=== PATIENT | female | born 1955 | race Caucasian/White ===

== ENCOUNTER 2018-03-29 16:51 | Outpatient (REF) | payer BC, SELFPAY | END 2018-03-29 17:11 | LOC: LBN 16:51 | PROVIDERS: PCP Student in an Organized Health Care Education/Training Program; Visit Provider Nurse Practitioner Adult Health | DX: J02.9 Acute pharyngitis, unspecified (principal) | CPT/HCPCS: 87070 ==

== ENCOUNTER 2018-08-10 01:30 | Outpatient (CLI) | payer BC, SELFPAY ==
--- NOTE | 2018-08-10 14:25 | DI.MAMMO_ITS ---
SYMPTOM/DIAGNOSIS: SCREENING, Z12.31 MAMMOGRAMS: Mammograms were interpreted according to the usual protocol including computer analysis with CAD system, tomosynthesis and C view imaging. Comparison is made with prior examinations. Breast density, Category B. No suspicious masses or microcalcifications are seen. There has been no significant change compared to the prior examination. The skin and axilla are unremarkable. IMPRESSION: No evidence for malignancy. Yearly mammography is recommended. Category 1. MQSA ASSESSMENT OF FINDINGS: Negative. Category 1. Patient will receive a letter notifying them of these results. BI-RADS category B. There are scattered areas of fibroglandular density.
== END 2018-08-10 01:50 ==
PROVIDERS: PCP Student in an Organized Health Care Education/Training Program; Visit Provider Student in an Organized Health Care Education/Training Program
DX: Z12.31 Encounter for screening mammogram for malignant neoplasm of breast (principal)
CPT/HCPCS: 77063; 77067

== ENCOUNTER 2019-05-03 16:25 | Outpatient (REF) | payer BC, SELFPAY | END 2019-05-03 16:45 | LOC: LBO 16:25 | PROVIDERS: PCP Student in an Organized Health Care Education/Training Program; Visit Provider Nurse Practitioner | DX: R30.0 Dysuria (principal) | CPT/HCPCS: 87086 ==

== ENCOUNTER 2019-06-02 10:18 | Outpatient (CLI) | payer MEDICARE, BC, SELFPAY ==
[2019-06-02 11:08] LABS: HCT 42.3 % (36.0-46.0); HGB 13.9 g/dL (12.0-15.5); Mean Corp. HGB Concentration 32.9 g/dL (32.0-36.0); Mean Corpuscular Hemoglobin 29.1 pg (27.0-33.0); Mean Corpuscular Volume 88.7 fL (80-95); Mean Platelet Volume 10.7 fL (8.0-11.0); Platelet Count 291 x1000/uL (130-400); RBC 4.77 m/cumm (4.00-5.20); RBC Distribution Width 14.4 % (11.7-14.6)
[2019-06-02 11:48] LABS: ALT 29 U/L (14-59); AST 15 U/L (15-37); Albumin 3.7 g/dL (3.4-5.0); Alkaline Phosphatase 86 U/L (46-116); Anion Gap 10.5 mmol/L (3-11); BUN 14 mg/dL (7-18); Bilirubin, Total 0.4 mg/dL (0.2-1.0); CO2 26.5 mmol/L (21.0-32.0); CREATININE 0.69 mg/dL (0.55-1.02); Calcium 8.8 mg/dL (8.5-10.1); Calculated LDL 188 mg/dL; Chloride 106 mmol/L (98-107); Cholesterol 262 mg/dL (<200); Glucose 94 mg/dL (74-106); HDL Cholesterol 50 mg/dL (40-60); Potassium 4.7 mmol/L (3.5-5.1); Sodium 143 mmol/L (136-145); Total Protein 7.1 g/dL (6.4-8.2); Triglyceride 124 mg/dL (<150)
== END 2019-06-02 10:38 ==
PROVIDERS: PCP Student in an Organized Health Care Education/Training Program; Visit Provider Student in an Organized Health Care Education/Training Program
DX: F90.0 Attention-deficit hyperactivity disorder, predominantly inattentive type (principal); F41.9 Anxiety disorder, unspecified; E66.3 Overweight; R30.0 Dysuria
CPT/HCPCS: 36415; 80053; 80061; 85027

== ENCOUNTER 2020-09-19 04:30 | Outpatient (CLI) | payer MEDICARE, BC, SELFPAY ==
[2020-09-19 09:32] LABS: HCT 40.1 % (36.0-46.0); HGB 13.5 g/dL (11.2-15.7); MCH 29.3 pg (27.0-33.0); MCHC 33.7 % (32.0-36.0); MCV 87.2 fL (80-95); MPV 11.6 fL (8.0-11.0); Platelet Count 262 10^3/uL (130-400); RDW 14.7 % (11.7-14.6)
[2020-09-19 10:28] LABS: ALT 34 U/L (14-59); AST 19 U/L (15-37); Alkaline Phosphatase 87 U/L (46-116); Anion Gap 9.5 mmol/L (3-11); BUN 18 mg/dL (7-18); Bilirubin, Total 0.5 mg/dL (0.2-1.0); CO2 25.5 mmol/L (21.0-32.0); CREATININE 0.8 mg/dL (0.55-1.02); Calcium 9.5 mg/dL (8.5-10.1); Calculated LDL 156 mg/dL (<100); Chloride 107 mmol/L (98-107); Cholesterol 237 mg/dL (<200); Glucose 100 mg/dL (74-106); HDL Cholesterol 69 mg/dL (40-60); Potassium 4.3 mmol/L (3.5-5.1); Sodium 142 mmol/L (136-145); TSH (W/Ref FT4) 1.34 uIU/mL (0.36-3.74); Triglyceride 62 mg/dL (<150)
[2020-09-19 10:40] LABS: Vitamin D 25 Total 25.9 ng/ml (30-100)
== END 2020-09-19 04:31 | disposition home or self-care (01) ==
LOC: LBO 04:30
PROVIDERS: PCP Student in an Organized Health Care Education/Training Program; Visit Provider Student in an Organized Health Care Education/Training Program
DX: E55.9 Vitamin D deficiency, unspecified (principal); E46 Unspecified protein-calorie malnutrition; E66.3 Overweight; K58.9 Irritable bowel syndrome, unspecified; R31.9 Hematuria, unspecified
CPT/HCPCS: 36415; 80053; 80061; 82306; 85027; 84443

== ENCOUNTER 2020-09-19 12:04 | Emergency (ER) | payer MEDICARE, BC, SELFPAY ==
[2020-09-19] VITALS (75 sets, daily range): BP systolic 116–164; BP diastolic 70–102; PULSE 55–90; RESP 8–24; TEMP 36.6–36.7; O2SAT 94–99
--- NOTE | 2020-09-19 12:00 | DI.RAD_ITS ---
EXAM: XR CHEST 2V PA LATERAL CLINICAL HISTORY: CP. TECHNIQUE: 2D digital imaging was performed. COMPARISON: CR CHEST 2 VIEWS PA,LAT from 01/05/2013 CR CHEST 2 VIEWS PA,LAT from 12/11/2017 FINDINGS: Heart size is normal. The mediastinum is not widened. Right lung is clear. Mild increased markings are noted adjacent left heart border in lingular segmen t of the left lung. No pleural effusions. No pulmonary edema. Pneumothorax. IMPRESSION: Mild increased markings in the lingular segment left lung adjacent to the left heart border. No pleu ral effusions. No pneumothorax. DATA REPOSITORY: RADIATION DOSE DELIVERED:
--- NOTE | 2020-09-19 12:00 | RT.EKG_ITS ---
APPROVED REPORT Exam: Resting ECG Patient Location: E HR:66 bpm ECG Measurements Heart Rate 66 AXIS OH 150 P 65 QRSd 94 QRS 48 QT 384 T 59 QTc 403 Conclusion Sinus rhythm...normal P axis, V-rate 60- 99
--- NOTE | 2020-09-19 12:08 | ED.GENADUL_ITS ---
Discharge Plan Disposition Patient Disposition: HOME Condition: Good Discharge Details Clinical Impression: Back pain, Chest pain Primary Care Provider: Zenaida Price ED Provider: Cecilia Cobian Home Meds and New Rx's Prescriptions: Continued albuterol sulfate [ProAir HFA] 90 mcg/actuation HFA aerosol inhaler 2 puff Inhalation Q4H PRN (Reason: bronchospasm) Qty: 1 RF: 3 loratadine [Allergy Relief (loratadine)] 10 mg tablet 10 mg PO DAILY RF: 0 bupropion HCl 150 mg tablet extended release 24 hr 150 mg PO QAM Qty: 60 RF: 0 naproxen sodium 550 mg tablet 550 mg PO BID PRN (Reason: pain) Qty: 40 RF: 0 Sinus Rinse Starter 1 EACH packet 1 ea NS BID PRNRF: 0 epinephrine 0.3 mg/0.3 mL auto-injector 0.3 mg IM ONCE PRNRF: 0 No Action mirtazapine [Remeron] 15 mg tablet 15 mg PO QHS RF: 0 gabapentin 100 mg capsule 100 mg PO TID PRN (Reason: pain) Qty: 42 RF: 0 lorazepam [Ativan] 1 mg tablet 1 mg PO DAILY PRN (Reason: anxiety) Qty: 10 RF: 0 diclofenac sodium [Voltaren] 100 GM gel 2 g Topical QID PRNRF: 0 Discharge Instructions Instructions: Chest Pain (ED), Back Pain (ED) Additional Instructions: Your imaging and labs are reassuring here today. May continue with Tylenol and/or ibuprofen. Discomfort. Please encourage water intake. Please encourage gentle stretching. You may continue with topical options as well such as lidocaine patches. If you develop fever/chills, shortness of breath, difficulty breathing, increased pain or other new/worsening symptoms please seek care urgently once again. Otherwise, please follow-up with your primary care in 1 week for reevaluation. Referrals: Zenaida Price DO [Primary Care Provider] - Discharge Data Discharge Date/Time-TO BE ENTERED AT DEPARTURE: 09/19/20 19:21 Medical Decision Making <SOLIS Valencia - Last Filed: 09/19/20 22:18> Patient has a pleasant 65-year-old [id number] female presenting today with chief complaint of left-sided back pain that is now radiating into the left side of her chest. She reports the pain began today's the last night while watching TV. States that the pain has been persistent). She denies any vomiting, lightheadedness. Pain radiates down the left arm. No personal or history of any familial cardiac disease. States the pain did come on after eating tacos and does state that the pain is similar to acid reflux but she states she has not had this for several years. She denies any shortness of breath or change in breathing. Pain is not exertional. No change with position or movement of the left upper extremity. She denies any history of trauma. On exam, patient appears nontoxic. She does appear anxious. Her vital signs are stable. She 2+ distal pulses in all extremities. Her lungs are clear. Normal cardiac exam. Not appreciate any rash. No pain elicited with palpation or movement of the left upper extremity. Abdominal exam is benign with no epigastric quadrant discomfort. No lower extremity edema, calves are soft and nontender. EKG was obtained and reviewed by Dr. Tapia. Patient had a normal sinus rhythm with a rate of 66. No acute ischemic changes are noted. Differential diagnoses include ACS, dissection, musculoskeletal pain, GERD, pancreatitis versus other. Patient is not having exertional pain that would be expected with ACS. She does not have any shortness of breath, pleuritic pain. Patient is not tachycardic or hypoxic, I do not have evidence at this time to suggest pulmonary embolism. Patient does have previous allergy to CT contrast dye. She reports that the last time she had it for several years ago and that she experienced diffuse hives. Patient states that she did have anaphylactic reaction to MRI contrast. She states that the last night she had a reaction with here, did not find evidence of this, likely prior to EMR. Patient and I discussed my concerns regarding dissection and the need to complete a CT with contrast. Discussed pretreatment with steroids and Benadryl. She was understanding and would like to proceed. Labs reviewed. No leukocytosis. Stable H&H. Normal coags. CMP without significant abnormality. Initial troponin less than 0.05. Lipase within normal limits. Patient received 125 mg of Solu-Medrol. Per policy, will wait 4 hours prior to patient undergoing CT with contrast. We will also get 50 mg of Benadryl 1 hour prior to imaging. Patient was evaluated by Dr. Tapia. I discussed further pain management with Mylanta rebound effect of alleviating discomfort. He recommended small dose of Dilaudid Patient tolerated pretreatment well. She came back from CT with no symptoms currently. FINDINGS: Pulmonary arteries: Normal. No pulmonary emboli. Aorta: Unremarkable. No aortic aneurysm. No aortic dissection. Lungs: Unremarkable. No consolidation. No masses. Pleural spaces: Unremarkable. No pneumothorax. No pleural effusion. Heart: Unremarkable. No cardiomegaly. No pericardial effusion. Lymph nodes: Unremarkable. No enlarged lymph nodes. Bones/joints: Unremarkable. No acute fracture. Soft tissues: Unremarkable. IMPRESSION: No evidence of aortic dissection or other acute findings FINDINGS: Aorta: No aortic aneurysm. No aortic dissection. Celiac trunk and mesenteric arteries: No occlusion or significant stenosis. Renal arteries: No occlusion or significant stenosis. Liver: Normal. No mass. Gallbladder and bile ducts: The gallbladder is surgically absent. Pancreas: Normal. No ductal dilation. Spleen: Normal. No splenomegaly. Adrenals: Normal. No mass. Kidneys and ureters: There is a 1.5 cm simple cyst of the left kidney. Stomach and bowel: Diverticulosis of the colon is present. Lymph nodes: Unremarkable. No enlarged lymph nodes. Intraperitoneal space: Unremarkable. No free air. No significant fluid collection. Bones/joints: Unremarkable. No acute fracture. No dislocation. Soft tissues: Unremarkable. IMPRESSION: 1. Status post cholecystectomy. 2. Small simple cyst of the left kidney. 3. Diverticulosis. 4. Unremarkable CT angiogram of the abdomen and pelvis. Discussed the findings with the patient. Patient was aware of the cyst. She continues to feel well after her CT scan. We will give Toradol to help with discomfort. Advised likely musculoskeletal source of her discomfort. Patient is receiving IV hydration. Please for continued care for discomfort. Return precautions were discussed. Advise follow-up with primary care in the next 1 week for reevaluation. All of her questions and concerns were addressed and she is in agreement this plan <Nathan Tapia MD - Last Filed: 10/05/20 17:21> Patient seen, examined, and discussed with SOLIS Cobian. I agree with treatment plan as discussed/documented. HPI <SOLIS Valencia - Last Filed: 09/19/20 22:18> General Mode of arrival: ambulatory . Date/Time Provider Initiated Documentation: 09/19/20 12:07 . Limitations to Documentation: no limitations . Information obtained by: patient, RN notes reviewed and old records reviewed . History of Present Illness 65 year old F presents to the emergency department with the chief complaint of Left upper back pain, described as moderate, with intensity rated at 3. Quality is described as stabbing, and is localized to the back. Patient reports radiation to (Anteriorly into left chest). Patient started experiencing this day(s) (Began last night after dinner while sedentary) and it has been constant. No relieving factors improve symptom(s), No exacerbating factors reported . Patient notes nausea/vomiting (Reports mild nausea like acid reflux); denies cough, diaphoresis, fever/chills, loss of appetite, rash, shortness of breath and weakness. Patient did receive the following treatments prior to arrival, other (Lidocaine patch) Related Data Home Medications Medication Instructions Recorded Confirmed Sinus Rinse Starter 1 ea NS BID PRN packet 05/18/14 09/28/20 naproxen sodium 550 mg tablet 550 mg PO BID PRN #40 tab-cap 07/16/18 09/28/20 albuterol sulfate 90 mcg/actuation 2 puff INHALATION Q4H PRN #1 inh 10/18/18 09/28/20 aerosol inhaler epinephrine 0.3 mg/0.3 mL 0.3 mg IM ONCE PRN 04/24/20 09/28/20 injection, auto-injector bupropion HCl 150 mg 24 hr tablet, 150 mg PO QAM #60 tab 09/13/20 09/28/20 extended release loratadine 10 mg tablet 10 mg PO DAILY 09/13/20 09/28/20 diclofenac sodium [Voltaren] 2 g TOPICAL QID PRN 09/21/20 09/28/20 gabapentin 100 mg capsule 100 mg PO TID PRN #42 cap 09/28/20 09/28/20 lorazepam 1 mg tablet 1 mg PO DAILY PRN #10 tab 09/28/20 mirtazapine 15 mg tablet 15 mg PO QHS tab 09/28/20 09/28/20 Previous Rx's Medication Instructions Recorded naproxen sodium 550 mg tablet 550 mg PO BID PRN #40 tab-cap 07/16/18 albuterol sulfate 90 mcg/actuation 2 puff INHALATION Q4H PRN #1 inh 10/18/18 aerosol inhaler bupropion HCl 150 mg 24 hr tablet, 150 mg PO QAM #60 tab 09/13/20 extended release gabapentin 100 mg capsule 100 mg PO TID PRN #42 cap 09/28/20 lorazepam 1 mg tablet 1 mg PO DAILY PRN #10 tab 09/28/20 Allergies Allergy/AdvReac Type Severity Reaction Status Date / Time Iodinated Contrast Media Allergy Severe anaphylaxis Verified 09/28/20 09:18 [Iodinated Contrast- Oral and IV Dye] acetaminophen Allergy Intermediate Hives Verified 09/28/20 09:18 erythromycin base Allergy Intermediate rash, pt Verified 09/28/20 09:18 [Erythromycin Base] confirms tolerated Azithromycin fentanyl Allergy Intermediate PO N&V Verified 09/28/20 09:18 Metronidazole HCl Allergy Intermediate hives Verified 09/28/20 09:18 [From Flagyl] propoxyphene Allergy Intermediate Verified 09/28/20 09:18 Sulfa (Sulfonamide Allergy Intermediate rash Verified 09/28/20 09:18 Antibiotics) Tetracyclines Allergy Intermediate Hives Verified 09/28/20 09:18 Penicillins Allergy Unknown erythematous Verified 09/28/20 09:18 rash midazolam AdvReac Severe PO N&V Verified 09/28/20 09:18 quetiapine fumarate AdvReac Severe 06/2012 Verified 09/28/20 09:18 [From Seroquel] drunk off topiramate AdvReac Intermediate Nausea Verified 09/28/20 09:18 codeine AdvReac Mild Nausea Verified 09/28/20 09:18 oxycodone HCl [From Percocet] AdvReac Unknown Nausea Verified 09/28/20 09:18 CT DYE Allergy Severe hives Uncoded 09/28/20 09:18 MRI dye Allergy Severe Swelling/Ed Uncoded 09/28/20 09:18 charles environmental Allergy Uncoded 09/28/20 09:18 Review of Systems <SOLIS Valencia - Last Filed: 09/19/20 22:18> Constitutional Constitutional: Reports as per HPI, Denies chills, Denies fever(s), Denies headache(s), Denies lethargy and Denies poor appetite Eyes Eyes: Denies change in vision ENT Ears, Nose, Mouth, and Throat: Denies dizziness and Denies headache(s) Cardiovascular Cardiovascular: Reports as per HPI, Denies dyspnea and Denies dyspnea on exertion Respiratory Respiratory: Reports as per HPI, Denies chest congestion, Denies cough, Denies pain on inspiration, Denies pain with cough, Denies dyspnea, Denies dyspnea on exertion and Denies wheezing Gastrointestinal Gastrointestinal: Reports as per HPI, Denies abdominal pain, Denies diarrhea, Denies nausea and Denies vomiting Musculoskeletal Musculoskeletal: Reports as per HPI and Denies back pain Integumentary/Breasts Skin/Breast: Reports as per HPI and Denies rash Neurologic Neurologic: Reports as per HPI, Denies dizziness and Denies headache(s) Allergic/Immunologic Allergic/Immunologic: Denies wheezing PFSH <SOLIS Valencia - Last Filed: 09/19/20 22:18> Medical History Anxiety At high risk for caregiver role strain Caring for Mo with dementia (M-F). Cared for/lost [id number] this past year. Complicated bereavement Lost daughter in law (pancreatic ca), 2018-.. after being a primary caregiver, then supported son. Now caring for mo with dementia. Hearing loss Hematuria, unspecified Irritable colon Obesity Surgical History section 1978 Cholecystectomy 1999 Colonoscopy - [facility] [place] (08/25/16) Cyst, Bartholin Right, excised Extraction of cataract (10/10/13) [place] with [place]Susan Lorenz [facility] then R in 10/2013 Left renal cyst, 12/26/2011 Dr Bor[place], [facility] Oophrectomy, Left 1975 renal ultrasound (09/01/17) [facility]/BSO, 1999 secondary to excessive bleeding Tonsillectomy 18yo Family History Mother Hypertensive disorder, systemic arterial Father Personal history of malignant neoplasm Renal cancer & Bladder cancer Brother , Cardiomyopathy at age 59. Personal history of malignant neoplasm Bladder cancer Maternal Grandfather , Bladder ca & emphyse No problems noted. Maternal Grandmother No problems noted. Paternal Grandfather , NE at age 62. No problems noted. Paternal Grandmother , Metastatic kid cance No problems noted. Brother Asthma Asthma & allergies Brother No problems noted. Social History Smoking/Tobacco Use Status: Former Tobacco Use Quit Date: 06/29/18 Smoking risk assessment performed?: Yes Alcohol Intake: never Drug use: Never number of grandchildren: 0 current occupation: Retired from [employer] What type of physical activity do you participate in: none Seatbelt use: always Do you feel safe at home: Yes Do you feel safe in your relationship?: Yes Exam <SOLIS Valencia - Last Filed: 09/19/20 22:18> Const General: cooperative, healthy appearing, comfortable, no acute distress and well developed Nutritional Appearance: well nourished and overweight Orientation: alert, awake and oriented x3 HENMT Head: normal to inspection Ears: hearing grossly normal bilaterally Mouth: moist mucous membranes Chest Chest: normal inspection of the chest, normal palpation of entire chest wall and no crepitus Resp Effort & Inspection: normal respiratory effort, able to speak in complete sentences and no respiratory distress Auscultation: clear to auscultation bilaterally, no rales, no rhonchi and no wheezes Cardio Rate: regular rate Rhythm: regular rhythm Heart Sounds: S1 normal and S2 normal GI Inspection: normal to inspection, no edema and non-distended Palpation: soft, no hepatosplenomegaly, not firm, no guarding, not rigid and nontender Auscultation: normal bowel sounds Back/Spine/Pelvis Back: no CVA tenderness Cervical Spine: normal cervical lordosis, cervical ROM normal, No cervical spinal tenderness and No step off deformity Thoracic/Lumbar Spine: thoracic and lumbar spine normal to inspection, No paraspinal tenderness, No thoracic spinal tenderness, No lumbar spinal tenderness and other (Tenderness to palpation along the medial aspect of the right scapula) Skin General skin exam: no rashes or lesions noted Trauma: no lacerations or abrasions Neuro General: patient alert, patient awake and patient oriented x3 Cognition: normal cognition Speech: speech normal Gait: normal gait Extrem General: normal to inspection, capillary refill normal, no pedal edema, no calf tenderness and normal gait Psych Appearance: grossly normal and well kempt Mental Status: mental status grossly normal Speech and Movement: speech and movement normal
[2020-09-19] MEDS: Mylanta Suspension 30 ML CUP PO (12:35)
[2020-09-19 12:46] LABS: Abs Immature Grans 0.02 10^3/uL (0.0-0.06); Absolute Basophil Count 0.04 10^3/uL (0.0-0.2); Absolute Eosinophil Count 0.19 10^3/uL (0.0-0.7); Absolute Monocyte Count 0.56 10^3/uL (0.1-0.8); Absolute Neutrophil Count 3.85 10^3/uL (1.2-6.7); Basophils % 0.5; Eosinophils % 2.5; HCT 41.1 % (36.0-46.0); HGB 13.8 g/dL (11.2-15.7); Immature Grans % 0.3; Lymphocytes % 38.4; MCH 29.2 pg (27.0-33.0); MCHC 33.6 % (32.0-36.0); MCV 87.1 fL (80-95); Monocytes % 7.4; Neutrophils % 50.9; Nucleated RBC 0 %; Platelet Count 269 10^3/uL (130-400); RBC 4.72 10^6/uL (3.93-5.22); RDW 14.8 % (11.7-14.6); RDW-SD 47.8 fL; WBC 7.56 10^3/uL (4.4-10.8)
[2020-09-19 12:57] LABS: Lipase 108 U/L (73-393)
[2020-09-19 13:01] LABS: Prothrombin Time 10.1 sec (9.3-11.0)
[2020-09-19 13:05] LABS: ALT 35 U/L (14-59); AST 19 U/L (15-37); Albumin 3.9 g/dL (3.4-5.0); Alkaline Phosphatase 90 U/L (46-116); Anion Gap 11.2 mmol/L (3-11); BUN 19 mg/dL (7-18); Bilirubin, Total 0.4 mg/dL (0.2-1.0); CO2 25.8 mmol/L (21.0-32.0); CREATININE 0.8 mg/dL (0.55-1.02); Calcium 9.8 mg/dL (8.5-10.1); Chloride 107 mmol/L (98-107); Glucose 116 mg/dL (74-106); Potassium 4.1 mmol/L (3.5-5.1); Sodium 144 mmol/L (136-145); Total Protein 7.5 g/dL (6.4-8.2); Troponin I < 0.05 ng/mL (<0.06)
[2020-09-19] MEDS: methylPREDNISolone SUCC 125 MG VIAL IVP (13:07)
[2020-09-19] MEDS: HYDROmorphone 2 MG/ML VIAL 0.5 MG IVP (14:11)
[2020-09-19] MEDS: diphenhydrAMINE 50 MG/ML VIAL IVP (16:07)
[2020-09-19 16:11] LABS: Troponin I < 0.05 ng/mL (<0.06)
--- NOTE | 2020-09-19 17:00 | DI.CT_ITS ---
EXAM: CT THORAX ABDOMEN CTA CLINICAL HISTORY: back pain radiating into chest, ?dissection. TECHNIQUE: Imaging Protocol: Axial computed tomography images with coronal and sagittal reformatted images were created and reviewed CONTRAST MATERIAL: Intravenous: Omnipaque 350 Contrast volume:100 ml Oral: None COMPARISON: No exams were available for comparison FINDINGS: CHEST: LUNGS: Mild benign-appearing increased markings are noted in the inferior lingular segment of the lef t lung. No other focal pulmonary findings. No pleural effusions. No significant focal findings in the trachea and mainstem bronchi.. MEDIASTINUM: There is no hilar nor mediastinal adenopathy. Visualized thyroid unremarkable. CARDIAC: Heart size is normal. There is no pericardial effusion. AORTA: Caliber of the thoracic aorta is within normal limits.No evidence of aortic dissection. No si gnificant stenosis at the origin the great vessels off the aortic arch. Diameter of the descending t horacic aorta is also within normal limits. There is minimal findings significant atherosclerotic di sease in the abdominal aorta. No evidence of abdominal aortic aneurysm. No significant stenosis at the origin of the celiac and superior mesenteric arteries and no evidence of embolus within the SMA. The inferior mesenteric artery is also patent. No evidence of obvious renal artery stenosis nor fib romuscular dysplasia. No significant focal findings at the aortic bifurcation and the visualized aor toiliac segments are normal. Note that the lower most external iliac arteries and common femoral art eries are not included in the field of view here. ABDOMEN: LIVER: Small cyst is noted in the superior aspect of the liver. Other focal hepatic lesions. GALLBLADDER/BILIARY: Gallbladder surgically absent. CBD diameter is upper normal. PANCREAS: No evidence of pancreatic mass nor dilatation of the pancreatic duct. SPLEEN: Spleen is not enlarged. There are no intrasplenic lesions. There is a cyst in the anterior i nferior aspect of the spleen which measures 10 x 11 millimeters. Splenic and portal veins are patent . ADRENALS: There are no significant adrenal masses. KIDNEYS: There is attenuation of the lateral cortex of the left kidney consistent with scarring. The re is also a cyst at this level which measures 1.6 x 1.5 cm. Parapelvic cysts are also noted in the left kidney. No calculi nor hydronephrosis nor hydroureter. No solid renal masses seen.. ABDOMINAL AORTA: The abdominal aorta is not enlarged. LYMPH NODES: There is no retroperitoneal nor para-aortic adenopathy. No obvious mesenteric masses. ABDOMINAL WALL/GI: No evidence of significant anterior abdominal wall hernia. No bowel obstruction. There is sigmoid diverticuli noted. Please note the entire sigmoid is not included in the field of v iew here. PELVIS: LYMPH NODES: There is no intrapelvic nor inguinal adenopathy. GI: No evidence of appendicitis.No evidence of sigmoid diverticulitis. URINARY BLADDER: No calculi nor masses evident REPRODUCTIVE: OSSEOUS: No significant osseous lesions. IMPRESSION: 1. No evidence of aortic dissection no significant atherosclerotic disease of the visualized aorta an d iliac arteries. Please note that the lower aspect of the external iliac arteries and common femora l arteries are not included in the field of view of this study. 2. Mild increased markings in the inferior lingular segment of the left lung. No pleural effusions. No intrathoracic adenopathy. 3. Gallbladder surgically absent biliary tree is not dilated. 4. There is significant attenuation of the lateral cortex of the left kidney which may be related to prior surgery or chronic scarring. There is a benign cyst in the lateral aspect of the left kidney n oted. There also parapelvic cysts evident. No solid renal masses evident. No hydronephrosis. 5. There is a solitary benign-appearing cyst in the spleen. This measures 1.0 x 1.1 cm. 6. Small cyst seen in the superior aspect of the liver which measures 10 x 11 millimeters. RADIATION DOSE DELIVERED: 1,007.84mGy.cm Total DLP DATA REPOSITORY: All CT scans at this facility are submitted to the National Radiology Data Registry (NRDR) Dose Index Registry (DIR) with the [employer] (ACR). RADIATION OPTIMIZATION: All CT scans at this facility use at least one of these dose optimization te chniques: automated exposure control; mA and/or kV adjustment per patient size (includes targeted exa ms where dose is matched to clinical indication); or iterative reconstruction.
[2020-09-19] MEDS: Normal Saline Flush 10 ML SYR IVP (17:35)
[2020-09-19] MEDS: Omnipaque 350 MG/ML 100 ML BTL IJ (17:35)
[2020-09-19] MEDS: Normal Saline - Diluent 50 ML VIAL IV (17:36)
--- NOTE | 2020-09-19 18:12 | DI.VRAD_ITS ---
PROCEDURE INFORMATION: Exam: CT Angiography Chest With Contrast Exam date and time: 09/19/2020 5:26 PM Age: 65 years old Clinical indication: Other: Back pain radiating into chest, ? dissection TECHNIQUE: Imaging protocol: Computed tomographic angiography of the chest with contrast. 3D rendering (Not supervised by radiologist): MIP and/or 3D reconstructed images were created by the technologist. Contrast material: OMNIPAQUE 350; Contrast volume: 100 ml; Contrast route: INTRAVENOUS (IV); COMPARISON: CR XR CHEST 2V PA LATERAL 09/19/2020 12:52 PM FINDINGS: Pulmonary arteries: Normal. No pulmonary emboli. Aorta: Unremarkable. No aortic aneurysm. No aortic dissection. Lungs: Unremarkable. No consolidation. No masses. Pleural spaces: Unremarkable. No pneumothorax. No pleural effusion. Heart: Unremarkable. No cardiomegaly. No pericardial effusion. Lymph nodes: Unremarkable. No enlarged lymph nodes. Bones/joints: Unremarkable. No acute fracture. Soft tissues: Unremarkable. IMPRESSION: No evidence of aortic dissection or other acute findings. PROCEDURE INFORMATION: Exam: CT Angiography Abdomen With Contrast Exam date and time: 09/19/2020 5:26 PM Age: 65 years old Clinical indication: Other: Back pain radiating into chest, ? dissection TECHNIQUE: Imaging protocol: Computed tomographic angiography images of the abdomen with intravenous contrast material. 3D rendering (Not supervised by radiologist): MIP and/or 3D reconstructed images were created by the technologist. Contrast material: OMNIPAQUE 350; Contrast volume: 100 ml; Contrast route: INTRAVENOUS (IV); COMPARISON: CR XR CHEST 2V PA LATERAL 09/19/2020 12:52 PM FINDINGS: Aorta: No aortic aneurysm. No aortic dissection. Celiac trunk and mesenteric arteries: No occlusion or significant stenosis. Renal arteries: No occlusion or significant stenosis. Liver: Normal. No mass. Gallbladder and bile ducts: The gallbladder is surgically absent. Pancreas: Normal. No ductal dilation. Spleen: Normal. No splenomegaly. Adrenals: Normal. No mass. Kidneys and ureters: There is a 1.5 cm simple cyst of the left kidney. Stomach and bowel: Diverticulosis of the colon is present. Lymph nodes: Unremarkable. No enlarged lymph nodes. Intraperitoneal space: Unremarkable. No free air. No significant fluid collection. Bones/joints: Unremarkable. No acute fracture. No dislocation. Soft tissues: Unremarkable. IMPRESSION: 1. Status post cholecystectomy. 2. Small simple cyst of the left kidney. 3. Diverticulosis. 4. Unremarkable CT angiogram of the abdomen and pelvis. Dictated and Authenticated by: Malcolm Vines MD. Ordering:RADHA Brooks MD
[2020-09-19] MEDS: Ketorolac 30 MG/ML VIAL IVP (18:40)
--- NOTE | 2020-09-19 19:18 | NUR.NOTE ---
Nursing Note: Spoke with human resources supervisor Rani regarding patient discharge and driving herself home after IV hydromorphone and benadryl admin hours earlier (see MAR for times). Per human resources supervisor ok for patient to drive self home.
== END 2020-09-19 19:21 | disposition home or self-care (01) ==
PROVIDERS: Emergency Provider Physician Assistant; PCP Student in an Organized Health Care Education/Training Program
DX: M54.6 Pain in thoracic spine (principal); R07.89 Other chest pain; R11.0 Nausea
CPT/HCPCS: 36415; 71275; 74175; 80053; 80061; 82306; 83690; 85027; 93005; 96374; 96375; 99285; 71046; 83735; 84443; 84484; 85025; 85610; 85730; 93010; J1200; J1885; J2930; J3490

== ENCOUNTER 2020-09-21 09:14 | Emergency (ER) | payer MEDICARE, BC, SELFPAY ==
[2020-09-21] VITALS (25 sets, daily range): BP systolic 134–146; BP diastolic 73–86; PULSE 57–71; RESP 9–20; TEMP 36.2; O2SAT 94–99
--- NOTE | 2020-09-21 09:15 | RT.EKG_ITS ---
APPROVED REPORT Exam: Resting ECG Patient Location: E HR:68 bpm ECG Measurements Heart Rate 68 AXIS OR 139 P 72 QRSd 92 QRS 52 QT 374 T 59 QTc 397 Conclusion Sinus rhythm...normal P axis, V-rate 60- 99. No STEMI. I have reviewed and interpreted ECG and agree with software generated interpretation.
--- NOTE | 2020-09-21 09:32 | ED.GENADUL_ITS ---
Discharge Plan Disposition Patient Disposition: HOME Condition: Improving Discharge Details Clinical Impression: Back pain, Shingles Primary Care Provider: Zenaida Price ED Provider: Chel Gross Home Meds and New Rx's Prescriptions: New lidocaine 5 % adhesive patch,medicated 1 patch topical DAILY 5 Days Qty: 15 RF: 0 valacyclovir 1 gram tablet 1,000 mg PO TID 7 Days Qty: 21 RF: 0 gabapentin 100 mg capsule 100 mg PO DAILY PRN (Reason: pain) 7 Days Qty: 7 RF: 0 Continued albuterol sulfate [ProAir HFA] 90 mcg/actuation HFA aerosol inhaler 2 puff Inhalation Q4H PRN (Reason: bronchospasm) Qty: 1 RF: 3 No Action loratadine [Allergy Relief (loratadine)] 10 mg tablet 10 mg PO DAILY RF: 0 bupropion HCl 150 mg tablet extended release 24 hr 150 mg PO QAM Qty: 60 RF: 0 naproxen sodium 550 mg tablet 550 mg PO BID PRN (Reason: pain) Qty: 40 RF: 0 Sinus Rinse Starter 1 EACH packet 1 ea NS BID PRNRF: 0 epinephrine 0.3 mg/0.3 mL auto-injector 0.3 mg IM ONCE PRNRF: 0 mirtazapine [Remeron] 15 mg tablet 15 mg PO QHS Qty: 30 RF: 0 diclofenac sodium [Voltaren] 100 GM gel 2 g Topical QID PRNRF: 0 Discharge Instructions Instructions: Shingles (ED), Back Pain (ED) Additional Instructions: Take medications as directed. Please see primary care provider early next week for follow-up. Follow up with primary care provider in 3-5 days. Return to ED sooner if any worsening or concerns. Increase oral fluids. Please take Ibuprofen with food every 4-6 hours as needed for pain and swelling. Referrals: Zenaida Price DO [Primary Care Provider] - Medical Decision Making 65-year-old female presents to the ER chief complaint of left-sided chest pain which radiates from her back. She reports this pain is constant, not relieved by lidocaine patches, ibuprofen or any measures that she is tried at home. She reports that she took some Tums this morning without relief. Endorses some nausea, denies any cough, shortness of breath, abdominal pain, diarrhea, hematochezia. She denies anything making it better or worse states that she cannot sleep due to the pain. She is tearful upon arrival. She was seen for same complaint 48 hours ago had an extensive work-up including serial troponins x2, CTA abdomen, lipid panel, with appendectomy chest x-ray, states she was found to have some elevated cholesterol slightly low vitamin D. She has not spoken with her primary care this week. She has a past medical history of obesity, anxiety, she is a former smoker quit in 2019 denies any drugs or alcohol. Initial work-up is largely within normal limits initial troponin is less than 0.05 EKG is unchanged from 48 hours ago. CBC shows no evidence of leukocytosis or infectious process, CMP is largely within normal limits BUN is 21, creatinine 0.9 GFR greater than 60, calcium is 10.8 Upon further examination patient does have 2 small red raised macules on her back she has no tenderness to palpation to her chest wall or anterior chest wall. Differential diagnosis includes coronary artery disease, anxiety, shingles. 1110: Upon patient reevaluation she feels better after the lidocaine patch applied, Toradol and 0.5 mg of lorazepam. Discussed possible diagnosis of shingles she verbalizes understanding. Instructed to follow-up with primary care early next week. Patient was prescribed valacyclovir 1 g 3 times a day x7 days, gabapentin 100 mg daily x7 days, and lidocaine patches were prescribed. Discussed home care and strict return instructions patient verbalized understanding. Medical Records Medical records reviewed: Yes I reviewed the patient's medical records. Medical records narrative: Medical records reviewed from visit 2 days ago. She did CTA abdomen, chest x-ray, lipid panel with elevated cholesterol, vitamin D level CBC CMP, serial troponin x2. CT abdomen below. EXAM: CT THORAX ABDOMEN CTA CLINICAL HISTORY: back pain radiating into chest, ?dissection. TECHNIQUE: Imaging Protocol: Axial computed tomography images with coronal and sagittal reformatted images were created and reviewed CONTRAST MATERIAL: Intravenous: Omnipaque 350 Contrast volume:100 ml Oral: None COMPARISON: No exams were available for comparison FINDINGS: CHEST: LUNGS: Mild benign-appearing increased markings are noted in the inferior lingular segment of the left lung. No other focal pulmonary findings. No pleural effusions. No significant focal findings in the trachea and mainstem bronchi.. MEDIASTINUM: There is no hilar nor mediastinal adenopathy. Visualized thyroid unremarkable. CARDIAC: Heart size is normal. There is no pericardial effusion. AORTA: Caliber of the thoracic aorta is within normal limits.No evidence of aortic dissection. No significant stenosis at the origin the great vessels off the aortic arch. Diameter of the descending thoracic aorta is also within normal limits. There is minimal findings significant atherosclerotic disease in the abdominal aorta. No evidence of abdominal aortic aneurysm. No significant stenosis at the origin of the celiac and superior mesenteric arteries and no evidence of embolus within the SMA. The inferior mesenteric artery is also patent. No evidence of obvious renal artery stenosis nor fibromuscular dysplasia. No significant focal findings at the aortic bifurcation and the visualized aortoiliac segments are normal. Note that the lower most external iliac arteries and common femoral arteries are not included in the field of view here. ABDOMEN: LIVER: Small cyst is noted in the superior aspect of the liver. Other focal hepatic lesions. GALLBLADDER/BILIARY: Gallbladder surgically absent. CBD diameter is upper normal. PANCREAS: No evidence of pancreatic mass nor dilatation of the pancreatic duct. SPLEEN: Spleen is not enlarged. There are no intrasplenic lesions. There is a cyst in the anterior inferior aspect of the spleen which measures 10 x 11 millimeters. Splenic and portal veins are patent. ADRENALS: There are no significant adrenal masses. KIDNEYS: There is attenuation of the lateral cortex of the left kidney consistent with scarring. There is also a cyst at this level which measures 1.6 x 1.5 cm. Parapelvic cysts are also noted in the left kidney. No calculi nor hydronephrosis nor hydroureter. No solid renal masses seen.. ABDOMINAL AORTA: The abdominal aorta is not enlarged. LYMPH NODES: There is no retroperitoneal nor para-aortic adenopathy. No obvious mesenteric masses. ABDOMINAL WALL/GI: No evidence of significant anterior abdominal wall hernia. No bowel obstruction. There is sigmoid diverticuli noted. Please note the entire sigmoid is not included in the field of view here. PELVIS: LYMPH NODES: There is no intrapelvic nor inguinal adenopathy. GI: No evidence of appendicitis.No evidence of sigmoid diverticulitis. URINARY BLADDER: No calculi nor masses evident REPRODUCTIVE: OSSEOUS: No significant osseous lesions. IMPRESSION: 1. No evidence of aortic dissection no significant atherosclerotic disease of the visualized aorta and iliac arteries. Please note that the lower aspect of the external iliac arteries and common femoral arteries are not included in the field of view of this study. 2. Mild increased markings in the inferior lingular segment of the left lung. No pleural effusions. No intrathoracic adenopathy. 3. Gallbladder surgically absent biliary tree is not dilated. 4. There is significant attenuation of the lateral cortex of the left kidney which may be related to prior surgery or chronic scarring. There is a benign cyst in the lateral aspect of the left kidney noted. There also parapelvic cysts evident. No solid renal masses evident. No hydronephrosis. 5. There is a solitary benign-appearing cyst in the spleen. This measures 1.0 x 1.1 cm. 6. Small cyst seen in the superior aspect of the liver which measures 10 x 11 millimeters. HPI General Mode of arrival: ambulatory . Date/Time Provider Initiated Documentation: 09/21/20 09:15 . Limitations to Documentation: no limitations . Information obtained by: patient . HPI Narrative: 65-year-old female presents to the ER chief complaint of left-sided chest pain which radiates from her back. She reports this pain is constant, not relieved by lidocaine patches, ibuprofen or any measures that she is tried at home. She reports that she took some Tums this morning without relief. Endorses some nausea, denies any cough, shortness of breath, abdominal pain, diarrhea, hematochezia. She denies anything making it better or worse states that she cannot sleep due to the pain. She is tearful upon arrival. She was seen for same complaint 48 hours ago had an extensive work-up including serial troponins x2, CTA abdomen, lipid panel, with appendectomy chest x-ray, states she was found to have some elevated cholesterol slightly low vitamin D. She has not spoken with her primary care this week. She has a past medical history of obesity, anxiety, she is a former smoker quit in 2019 denies any drugs or alcohol. Related Data Home Medications Medication Instructions Recorded Confirmed Sinus Rinse Starter 1 ea NS BID PRN packet 05/18/14 09/21/20 naproxen sodium 550 mg tablet 550 mg PO BID PRN #40 tab-cap 07/16/18 09/21/20 albuterol sulfate 90 mcg/actuation 2 puff INHALATION Q4H PRN #1 inh 10/18/18 09/21/20 aerosol inhaler epinephrine 0.3 mg/0.3 mL 0.3 mg IM ONCE PRN 04/24/20 09/21/20 injection, auto-injector bupropion HCl 150 mg 24 hr tablet, 150 mg PO QAM #60 tab 09/13/20 09/21/20 extended release loratadine 10 mg tablet 10 mg PO DAILY 09/13/20 09/21/20 mirtazapine 15 mg tablet 15 mg PO QHS #30 tab 09/16/20 09/21/20 diclofenac sodium [Voltaren] 2 g TOPICAL QID PRN 09/21/20 09/21/20 gabapentin 100 mg PO DAILY PRN 7 Days #7 cap 09/21/20 lidocaine 1 patch TOPICAL DAILY 5 Days #15 ea 09/21/20 valacyclovir 1,000 mg PO TID 7 Days #21 tab 09/21/20 Previous Rx's Medication Instructions Recorded naproxen sodium 550 mg tablet 550 mg PO BID PRN #40 tab-cap 07/16/18 albuterol sulfate 90 mcg/actuation 2 puff INHALATION Q4H PRN #1 inh 10/18/18 aerosol inhaler bupropion HCl 150 mg 24 hr tablet, 150 mg PO QAM #60 tab 09/13/20 extended release mirtazapine 15 mg tablet 15 mg PO QHS #30 tab 09/16/20 gabapentin 100 mg PO DAILY PRN 7 Days #7 cap 09/21/20 lidocaine 1 patch TOPICAL DAILY 5 Days #15 ea 09/21/20 valacyclovir 1,000 mg PO TID 7 Days #21 tab 09/21/20 Allergies Allergy/AdvReac Type Severity Reaction Status Date / Time Iodinated Contrast Media Allergy Severe anaphylaxis Verified 09/21/20 09:19 [Iodinated Contrast- Oral and IV Dye] acetaminophen Allergy Intermediate Hives Verified 09/21/20 09:19 erythromycin base Allergy Intermediate rash, pt Verified 09/21/20 09:19 [Erythromycin Base] confirms tolerated Azithromycin fentanyl Allergy Intermediate PO N&V Verified 09/21/20 09:19 Metronidazole HCl Allergy Intermediate hives Verified 09/21/20 09:19 [From Flagyl] propoxyphene Allergy Intermediate Verified 09/21/20 09:19 Sulfa (Sulfonamide Allergy Intermediate rash Verified 09/21/20 09:19 Antibiotics) Tetracyclines Allergy Intermediate Hives Verified 09/21/20 09:19 Penicillins Allergy Unknown erythematous Verified 09/21/20 09:19 rash midazolam AdvReac Severe PO N&V Verified 09/21/20 09:19 quetiapine fumarate AdvReac Severe 06/2012 Verified 09/21/20 09:19 [From Seroquel] drunk off topiramate AdvReac Intermediate Nausea Verified 09/21/20 09:19 codeine AdvReac Mild Nausea Verified 09/21/20 09:19 oxycodone HCl [From Percocet] AdvReac Unknown Nausea Verified 09/21/20 09:19 CT DYE Allergy Severe hives Uncoded 09/21/20 09:19 MRI dye Allergy Severe Swelling/Ed Uncoded 09/21/20 09:19 charles environmental Allergy Uncoded 09/21/20 09:19 General Stated Complaint: Chest Pain ROSETTE: 2 Review of Systems Narrative: Constitutional: Negative for weight loss, alert and oriented, well groomed, normal body habitus, appears anxious and tearful upon arrival. HEENT: Denies trauma, headaches, blurry vision, nasal discharge, sore throat, trouble swallowing. Chest: Denies palpitations, irregular rhythm, positive left sided chest pain which radiates from her back. Respiratory: Denies Shortness of breath, cough, hemoptysis. GI: Denies abdominal pain, vomiting, diarrhea, constipation. Positive nausea. : Denies dysuria, hematuria, flank pain, rectal bleeding. Neuro: Denies dizziness, blurry vision, weakness, syncope, headache or facial numbness. Hematologic: Denies easy bruising, intolerance to heat or cold, hair loss. [facility] Medical History Anxiety At high risk for caregiver role strain Caring for Mo with dementia (M-F). Cared for/lost [id number]-[id number] this past year. Complicated bereavement Lost sister in law (pancreatic ca?), 2019-.. after being a primary caregiver, then supported brother. Now caring for mo with dementia. Hearing loss Hematuria, unspecified Irritable colon Obesity Surgical History section 1979 Cholecystectomy 1999 Colonoscopy - MAC (08/25/16) Cyst, Bartholin Right, excised Extraction of cataract (10/10/13) [place]Susan Loren[place] [facility] [place] 10/2013 Left renal cyst, 12/26/2011 Dr Bor[place]ro, [facility] [place]ophrectomy, Left 1975 renal ultrasound (09/01/17) [facility] urology JENNIFER/BSO, 1999 secondary to excessive bleeding Tonsillectomy 18yo Family History Mother Hypertensive disorder, systemic arterial Father Personal history of malignant neoplasm Renal cancer & Bladder cancer Brother , Cardiomyopathy at age 59. Personal history of malignant neoplasm Bladder cancer Maternal Grandfather , Bladder ca & emphyse No problems noted. Maternal Grandmother No problems noted. Paternal Grandfather , MA at age 62. No problems noted. Paternal Grandmother , Metastatic kid cance No problems noted. Brother Asthma Asthma & allergies Brother No problems noted. Social History Smoking/Tobacco Use Status: Former Tobacco Use Quit Date: 06/29/18 Smoking risk assessment performed?: Yes Alcohol Intake: never Drug use: Never number of grandchildren: 0 current occupation: Retired from [employer] What type of physical activity do you participate in: none Seatbelt use: always Do you feel safe at home: Yes Do you feel safe in your relationship?: Yes Exam Narrative Exam Narrative: Constitutional: Alert and oriented x3. Appears stated age. Overweight body habitus. Appears very anxious and tearful. Head: Normocephalic, no trauma. Eyes: Pupils PERRLA, Red reflex noted, EOM's intact. Eyelids symmetrical without lesions, discharge, or swelling. ENT: Bilateral TM's WNL, External ear normal to inspection, no mastoid TTP, swelling, or erythema, Nasal turbinates WNL, no nasal discharge. Normal dentition, Posterior pharynx WNL, no exudate. Chest: RRR, Normal S1, S2, distal pulses intact. Resp: Lungs clear to auscultation bilaterally, no wheezes, rales, or rhonchi. Abdomen: Soft, nondistended, nontender to palpation all 4 quadrants. Musculoskeletal: Normal gait, 5/5 strength to all four extremities. No edema noted to bilateral lower extremities. Skin: No suspicious rashes or lesions. Capillary refill less than 2 sec. Neurologic: Cranial nerves II-XII intact. Alert and oriented x 3. Hematologic/Lymphatic: No ecchymosis, no lymphadenopathy. Course Vital Signs Vital signs: Vital Signs Temperature 36.2 C L 09/21/20 09:17 Pulse 70 09/21/20 09:17 Respiratory Rate 14 09/21/20 09:17 Blood Pressure 146/86 H 09/21/20 09:17 Pulse Oximetry 97 09/21/20 09:17 Temperature 36.2 C L 09/21/20 09:17 Temperature Source Skin 09/21/20 09:17 Pulse 67 09/21/20 09:20 Pulse 63 09/21/20 09:21 Respiratory Rate 18 09/21/20 09:21 Respiratory Effort Non-Labored 09/21/20 09:20 Blood Pressure 146/86 H 09/21/20 09:20 Blood Pressure Mean 101 09/21/20 09:20 Blood Pressure Position Supine 09/21/20 09:17 Pulse Oximetry 98 09/21/20 09:21 Oxygen Delivery Method Room Air 09/21/20 09:17 Oxygen Flow Rate 0 09/21/20 09:17 Pain Level 7 09/21/20 09:17
[2020-09-21 09:40] LABS: Abs Immature Grans 0.04 10^3/uL (0.0-0.06); Absolute Basophil Count 0.08 10^3/uL (0.0-0.2); Absolute Eosinophil Count 0.19 10^3/uL (0.0-0.7); Absolute Lymphocyte Count 2.95 10^3/uL (1.2-3.4); Absolute Monocyte Count 0.63 10^3/uL (0.1-0.8); Absolute Neutrophil Count 5.08 10^3/uL (1.2-6.7); Basophils % 0.9; Eosinophils % 2.1; HCT 43.2 % (36.0-46.0); HGB 14.5 g/dL (11.2-15.7); Immature Grans % 0.4; Lymphocytes % 32.9; MCH 29.5 pg (27.0-33.0); MCHC 33.6 % (32.0-36.0); MPV 11.7 fL (8.0-11.0); Neutrophils % 56.7; Nucleated RBC 0 %; Platelet Count 271 10^3/uL (130-400); RBC 4.91 10^6/uL (3.93-5.22); RDW 14.6 % (11.7-14.6); RDW-SD 47.3 fL; WBC 8.97 10^3/uL (4.4-10.8)
[2020-09-21] MEDS: Aspirin 81 MG CHEW 324 MG CH (09:49)
[2020-09-21] MEDS: Ondansetron 4 MG/2 ML VIAL IVP (09:49)
[2020-09-21] MEDS: MORPHine 10 MG/ML VIAL 2 MG IVP (09:50)
[2020-09-21] MEDS: Normal Saline Flush 10 ML SYR IVP (09:54)
[2020-09-21 09:55] LABS: ALT 37 U/L (14-59); AST 17 U/L (15-37); Albumin 4.1 g/dL (3.4-5.0); Alkaline Phosphatase 86 U/L (46-116); Anion Gap 10.1 mmol/L (3-11); BUN 21 mg/dL (7-18); Bilirubin, Total 0.5 mg/dL (0.2-1.0); CO2 27.9 mmol/L (21.0-32.0); CREATININE 0.9 mg/dL (0.55-1.02); Calcium 10.8 mg/dL (8.5-10.1); Chloride 102 mmol/L (98-107); Glucose 97 mg/dL (74-106); Potassium 3.8 mmol/L (3.5-5.1); Sodium 140 mmol/L (136-145); Total Protein 7.8 g/dL (6.4-8.2)
[2020-09-21 09:58] LABS: Troponin I < 0.05 ng/mL (<0.06)
[2020-09-21] MEDS: Ketorolac 15 MG/ML VIAL IVP (10:37)
[2020-09-21] MEDS: Lidocaine 5% Patch 1 PATCH TP (10:41)
[2020-09-21] MEDS: LORazepam 2 MG/ML VIAL 0.5 MG IVP (10:41)
== END 2020-09-21 11:20 | disposition home or self-care (01) ==
PROVIDERS: Emergency Provider Registered Nurse Emergency; PCP Student in an Organized Health Care Education/Training Program
DX: B02.9 Zoster without complications (principal); M54.5 Low back pain
CPT/HCPCS: 80053; 93005; 96374; 96375; 99284; 83735; 84484; 85025; 93010; 99283; J1885; J2060; J2270; J2405

== ENCOUNTER 2020-10-23 02:12 | Outpatient (CLI) | payer MEDICARE, BC, SELFPAY ==
--- NOTE | 2020-10-23 08:15 | DI.CTLCSR_ITS ---
EXAM: CT CHEST LUNG CANCER SCREEN CLINICAL HISTORY: Screening for lung cancer,FORMER SMOKER, Z87.891 TECHNIQUE: Imaging Protocol: Axial computed tomography images with coronal and sagittal reformatted images were created and reviewed COMPARISON: CT CT THORAX ABDOMEN CTA from 09/19/2020 FINDINGS: Tracheobronchial tree: Patent where visualized. Pulmonary parenchyma: No consolidation or dominant measurable mass. No architectural distortion. Lung Nodules: None. Mediastinum and Leanne: No dominant adenopathy or fluid collection. Pleura: No effusion or pneumothorax. Heart: The heart is not dilated. No coronary artery calcifications are seen. No pericardial effusion . Aorta: Thoracic aorta non-dilated.Mild atherosclerosis. Upper abdomen: Status post cholecystectomy. Soft Tissues: Unremarkable. Bones: Within normal limits. IMPRESSION: No pulmonary nodules. Lung RADS Cat 1 - Negative: No nodules and definitely benign nodules Lung-RADS 1.0 CATEGORIES: Category 0 - Prior chest CT exam(s) being located for comparison. Category 1 - Annual screening in 12 months. No nodules or definitely benign nodules. Category 2 - Annual screening in 12 months. Benign appearance. Nodules with low likelihood of becomin g active cancer. Category 3 - 6-month follow-up. Probably benign. Short-term follow-up suggested. Nodules with low lik elihood of becoming active cancer. Category 4A - 3-month follow-up and CT/PET if >8 mm in size. Suspicious finding. Findings which requi re additional testing. Category 4B - Findings which require additional testing and tissue sampling. Suspicious finding. Modifier S- Potentially clinically significant finding. (Non lung cancer) RADIATION DOSE DELIVERED: 91.72mGy.cm Total DLP 91.72mGy.cm Total DLP 2.21mGy CTDIvol DATA REPOSITORY: All CT scans at this facility are submitted to the National Radiology Data Registry (NRDR) Dose Index Registry (DIR) with the [employer] (ACR). RADIATION OPTIMIZATION: All CT scans at this facility use at least one of these dose optimization te chniques: automated exposure control; mA and/or kV adjustment per patient size (includes targeted exa ms where dose is matched to clinical indication); or iterative reconstruction.
--- NOTE | 2020-10-23 14:00 | DI.MAMMO_ITS ---
EXAM: MG MAMMO SCREENING CLINICAL HISTORY: screening,Z12.39 TECHNIQUE: Bilateral full field digital CC and MLO mammographic images were obtained with 3D tomosyn thesis and utilizing computer aided detection (CAD). COMPARISON: Available for comparison. FINDINGS: Masses/Architectural Distortion: None seen. Microcalcifications: No suspicious pleomorphic-type are seen. Skin Thickening/Nipple Retraction: None. IMPRESSION: 1. No significant interval change with no specific features of malignancy noted. 2. Unless there is more urgent need, screening mammography is recommended, as per [employer] guidelines. BI-RADS Category 1 - Negative Breast Density - Category B - Scattered areas of fibroglandular density Breast density category C or D implies that the patient has dense breast tissue. Dense breast tissue is very common and is not abnormal but dense breast tissue can make it harder to find cancer on a ma mmogram. Also, dense breast tissue may increase their breast cancer risk. This information about the result of the mammogram report was provided to the patient to raise their awareness. Use this report when you speak with the patient about their risks for breast cancer, which includes their family hist ory. At that time, you may recommend for more screening tests (Ultrasound or MRI) as they might be us eful based on their risk. A negative radiographic report should not delay biopsy if a dominant or clinically suspicious mass is present. Up to ten percent of cancers are not identified on mammography. A negative report may reinforce clinical impression. Adenosis and dense breasts may obscure an underlying neoplasm. False positive reports average 6 to 10%. Patient will receive a letter notifying them of these results.
== END 2020-10-23 02:32 ==
PROVIDERS: PCP Student in an Organized Health Care Education/Training Program; Visit Provider Student in an Organized Health Care Education/Training Program
DX: Z12.31 Encounter for screening mammogram for malignant neoplasm of breast (principal); Z12.2 Encounter for screening for malignant neoplasm of respiratory organs; Z87.891 Personal history of nicotine dependence
CPT/HCPCS: 71271; 77063; 77067

== ENCOUNTER 2021-09-20 02:08 | Outpatient (CLI) | payer MEDICARE, BC, SELFPAY ==
--- NOTE | 2021-09-20 07:30 | DI.DEXA_ITS ---
Exam(s) XR DEXA BONE DENSITY W/WO SAGAR EXAM: XR DEXA BONE DENSITY W/WO SAGAR CLINICAL HISTORY: Evaluate bone density 2' smkg/steroid/ppi use,SCREENING FOR OSTEOPOROSIS TECHNIQUE: COMPARISON: Comparison examination is 04/23/2009 FINDINGS: Lateral Spine Image: Unremarkable. No compression deformities identified. Left hip: Total T-Score: -1.2. This compares to -0.5. That is a decrease of 10 percent in the bone mineral den sity. Total Z-Score: 0.1 T- and Z-scores: Findings are consistent with osteopenia. Lumbar Spine: Total T-Score: -0.7. This compares to -0.3 on the prior examination. This is consistent with a decre ase of 4.2 percent in the bone mineral density. Total Z-Score: 1.3 T- and Z-scores: Within normal limits. IMPRESSION: 1. No evidence of osteoporosis. 2. Decrease in the bone mineral density since the prior examination.
== END 2021-09-20 02:28 ==
PROVIDERS: PCP Student in an Organized Health Care Education/Training Program; Visit Provider Student in an Organized Health Care Education/Training Program
DX: Z78.0 Asymptomatic menopausal state; Z92.241 Personal history of systemic steroid therapy; Z13.820 Encounter for screening for osteoporosis
CPT/HCPCS: 77080

== ENCOUNTER 2021-12-13 12:15 | Outpatient (REF) | payer MEDICARE, BC, SELFPAY ==
--- NOTE | 2021-12-13 10:30 | SKI_PTH ---
PATIENT: Katie Heredia LOC: [facility] U#:[id number] AGE/SX: 66/F ROOM: RE12/13/[address]: Fredis Baez DO : 1955 BED: DIS: 12/13/2021 SPEC #: [id number] RECD: 12/13/21 15:19 STATUS: [facility] REQ #: [id number] SAUL: 12/13/21 10:[address]: Fredis Baez DEPT: Surgical Specimen RECD BY: Ketty Sarmiento ENTERED: 12/13/21 15:19 SP TYPE: SKI OT DR: Zenaida Price DO Tissues: 1 - SKIN BIOPSY(SHAVE/PUNCH) Procedures: SKIN LEVEL 4 Comments: [id number]
== END 2021-12-13 12:16 | disposition home or self-care (01) ==
LOC: LBN 12:15
PROVIDERS: PCP Student in an Organized Health Care Education/Training Program; Visit Provider Otolaryngology Otolaryngology/Facial Plastic Surgery
DX: L57.0 Actinic keratosis (principal); L43.8 Other lichen planus
CPT/HCPCS: 88305

== ENCOUNTER 2022-02-20 14:19 | Outpatient (REF) | payer MEDICARE, BC, SELFPAY ==
[2022-02-20 17:57] LABS: Anion Gap 10.3 mmol/L (3-11); BUN 20 mg/dL (7-18); CO2 25.7 mmol/L (21.0-32.0); CREATININE 0.6 mg/dL (0.55-1.02); Calcium 8.8 mg/dL (8.5-10.1); Calculated LDL 156 mg/dL (<100); Chloride 106 mmol/L (98-107); Cholesterol 251 mg/dL (<200); Glucose 94 mg/dL (74-106); HDL Cholesterol 78 mg/dL (40-60); Potassium 4.5 mmol/L (3.5-5.1); Sodium 142 mmol/L (136-145); Triglyceride 89 mg/dL (<150)
== END 2022-02-20 14:20 | disposition home or self-care (01) ==
LOC: LBN 14:19
PROVIDERS: PCP Student in an Organized Health Care Education/Training Program; Visit Provider Student in an Organized Health Care Education/Training Program
DX: E46 Unspecified protein-calorie malnutrition (principal); E86.0 Dehydration; N28.9 Disorder of kidney and ureter, unspecified; E66.3 Overweight; Z13.220 Encounter for screening for lipoid disorders
CPT/HCPCS: 80048; 80061

== ENCOUNTER → 2022-03-11 02:12 | Outpatient (CLI) | payer MEDICARE, BC, SELFPAY ==
--- NOTE | 2022-03-11 07:45 | DI.CTLCSR_ITS ---
Exam(s) CT CHEST LUNG CANCER SCREEN EXAM: CT CHEST LUNG CANCER SCREEN CLINICAL HISTORY: Screening for lung cancer,former smoker, z87.891 TECHNIQUE: Imaging Protocol: Axial computed tomography images with coronal and sagittal reformatted images were created and reviewed. Low dose screening protocol. COMPARISON: CT CT CHEST LUNG CANCER SCREEN from 10/23/2020 FINDINGS: Tracheobronchial tree: No bronchiectasis or mucus plugging.. Mediastinum and Leanne: No dominant adenopathy or fluid collection. Pulmonary parenchyma: Mild apical scarring. No consolidation or dominant measurable mass. Mild emphy sematous changes. Lung Nodules: None. Pleura: No effusion. No pneumothorax. Heart: The heart is not dilated. No coronary artery calcifications are seen. Aorta: Thoracic aorta non-dilated. Upper abdomen: Status post cholecystectomy. Scarring left kidney. Bones: Unremarkable for age. Soft Tissues: Unremarkable. IMPRESSION: No pulmonary nodules. Lung RADS Cat 1 - Negative: No nodules and definitely benign nodules Lung-RADS 1.0 CATEGORIES: Category 0 - Prior chest CT exam(s) being located for comparison. Category 1 - Annual screening in 12 months. No nodules or definitely benign nodules. Category 2 - Annual screening in 12 months. Benign appearance. Nodules with low likelihood of becomin g active cancer. Category 3 - 6-month follow-up. Probably benign. Short-term follow-up suggested. Nodules with low lik elihood of becoming active cancer. Category 4A - 3-month follow-up and CT/PET if >8 mm in size. Suspicious finding. Findings which requi re additional testing. Category 4B - Findings which require additional testing and tissue sampling. Category 4X - Category 3 or 4 nodules with additional features or imaging findings that increases the suspicion of malignancy. Modifier S- Potentially clinically significant findings (non lung cancer) RADIATION DOSE DELIVERED: 72.59mGy.cm Total DLP 1.84mGy CTDIvol DATA REPOSITORY: All CT scans at this facility are submitted to the National Radiology Data Registry (NRDR) Dose Index Registry (DIR) with the [employer] (ACR). RADIATION OPTIMIZATION: All CT scans at this facility use at least one of these dose optimization te chniques: automated exposure control; mA and/or kV adjustment per patient size (includes targeted exa ms where dose is matched to clinical indication); or iterative reconstruction.
== END ==
PROVIDERS: PCP Student in an Organized Health Care Education/Training Program; Visit Provider Student in an Organized Health Care Education/Training Program
DX: Z87.891 Personal history of nicotine dependence (principal); Z12.2 Encounter for screening for malignant neoplasm of respiratory organs
CPT/HCPCS: 71271

== ENCOUNTER 2022-04-03 12:32 | Outpatient (REF) | payer MEDICARE, BC, SELFPAY ==
[2022-04-05 10:47] LABS: COVID-19 RT-PCR UVMMC Result Negative (Negative)
== END 2022-04-03 12:33 | disposition home or self-care (01) ==
LOC: LBN 12:32
PROVIDERS: Nurse Practitioner Family; PCP Student in an Organized Health Care Education/Training Program; Visit Provider Student in an Organized Health Care Education/Training Program
DX: Z20.822 Contact with and (suspected) exposure to COVID-19 (principal)
CPT/HCPCS: U0003

== ENCOUNTER 2022-07-01 12:42 | Outpatient (CLI) | payer MEDICARE, BC, SELFPAY ==
--- NOTE | 2022-07-01 12:00 | DI.RAD_ITS ---
Exam(s) XR THUMB RT EXAM: XR THUMB RT CLINICAL HISTORY: evaluate joint space, r/o bony path,pain rt thumb, tendinitis thumb,M79.644. TECHNIQUE: 2D digital imaging was performed. COMPARISON: No exams were available for comparison FINDINGS: 3 views No evidence of acute fracture nor dislocation. Mild degenerative changes at the 1st carpometacarpal joint. Metacarpophalangeal joint of the thumb appears unremarkable. Mild degenerative changes at th e interphalangeal joint including a small sub millimeter os ossific density seen off of the lateral a spect of this joint space. No erosions. No significant osseous lesions. IMPRESSION: As above. DATA REPOSITORY: RADIATION DOSE DELIVERED:
== END 2022-07-01 13:02 ==
LOC: DI 12:42
PROVIDERS: PCP Student in an Organized Health Care Education/Training Program; Visit Provider Student in an Organized Health Care Education/Training Program
DX: M77.8 Other enthesopathies, not elsewhere classified (principal); M19.041 Primary osteoarthritis, right hand
CPT/HCPCS: 73140

== ENCOUNTER 2022-10-08 01:44 | Outpatient (CLI) | payer MEDICARE, BC, SELFPAY ==
--- NOTE | 2022-10-08 08:00 | DI.MAMMO_ITS ---
Exam(s) MAMMO SCREENING EXAM: MAMMO SCREENING CLINICAL HISTORY: screening,z12.39. TECHNIQUE: Bilateral full field digital CC and MLO mammographic images were obtained with 3D tomosyn thesis and utilizing computer aided detection (CAD). COMPARISON: Prior mammograms were reviewed. FINDINGS: There are no new radiograph findings in left breast. In the right breast on the CC 3D imaging there is a new asymmetric density-possible nodule located 3 cm in from the nipple at approximately 6 o'clock position, this measuring4 by 3 mm. There are no malignant-appearing microcalcification groups in this region or elsewhere in either [address] There is no significant architectural distortion nor skin thickening-retraction. IMPRESSION: 1. No radiographic evidence of malignancy in left breast. 2. New asymmetric density-possible nodule anteriorly in the right breast measuring approximately 4 x 3 mm. Spot compression view and ultrasound recommended. BI-RADS Category 0 - Assessment Incomplete: Need additional imaging evaluation Breast Density - Category B - Scattered areas of fibroglandular density Breast density Category C or D implies that the patient has dense breast tissue. Dense breast tissue can make it harder to find cancer on a mammogram. Dense breast tissue is also associated with an incr eased risk of breast cancer. This information about the result of the mammogram report was provided to the patient to raise their awareness. Use this report when you speak with the patient about their risks for breast cancer, which includes their family history. At that time, you may recommend additional screening tests (Ultrasoun d or MRI) as these tests may add significant information. A negative radiographic report should not delay biopsy if a dominant or clinically suspicious mass is present. Up to ten percent of cancers are not identified on mammography. A negative report may reinforce clinical impression. Adenosis and dense breasts may obscure an underlying neoplasm. False positive reports average 6 to 10%. Patient will receive a letter notifying them of these results.
== END 2022-10-08 02:04 ==
PROVIDERS: PCP Student in an Organized Health Care Education/Training Program; Visit Provider Student in an Organized Health Care Education/Training Program
DX: Z12.31 Encounter for screening mammogram for malignant neoplasm of breast (principal)
CPT/HCPCS: 77063; 77067

== ENCOUNTER 2022-10-16 02:57 | Outpatient (CLI) | payer MEDICARE, BC, SELFPAY ==
--- NOTE | 2022-10-16 14:55 | DI.MAMMO_ITS ---
Exam(s) MAMMO SCREEN CALL BACK UNI EXAM: MAMMO SCREEN CALL BACK UNI CLINICAL HISTORY: F/U MAMMO, R92.8,NEW ASYMMETRIC DENSITY, ? NODULE,R92.8 TECHNIQUE: Spot compression views with tomographic imaging were performed. COMPARISON: 2015 through recent exam of 08 October 2022. FINDINGS: No suspicious masses or suspicious microcalcifications are seen. No persistent abnormality is seen on the additional views performed. The findings are consistent wit h overlying fibroglandular tissue. There has been no significant change from prior exams. IMPRESSION: BI-RADS Category 1, Negative Yearly screening mammography is recommended. Breast Density - Category B, scattered fibroglandular densities.
== END 2022-10-16 03:17 ==
LOC: DI 02:58
PROVIDERS: PCP Student in an Organized Health Care Education/Training Program; Visit Provider Student in an Organized Health Care Education/Training Program
DX: R92.8 Other abnormal and inconclusive findings on diagnostic imaging of breast (principal)
CPT/HCPCS: 77063; 77067

== ENCOUNTER 2022-12-25 04:12 | Outpatient (CLI) | payer MEDICARE, BC, SELFPAY ==
[2022-12-25 10:47] LABS: Calculated LDL 206 mg/dL (<100); Cholesterol 287 mg/dL (<200); HDL Cholesterol 66 mg/dL (40-60); Triglyceride 76 mg/dL (<150)
== END 2022-12-25 04:13 | disposition home or self-care (01) ==
LOC: LBO 04:12
PROVIDERS: PCP Student in an Organized Health Care Education/Training Program; Visit Provider Student in an Organized Health Care Education/Training Program
DX: E66.3 Overweight (principal); Z68.29 Body mass index [BMI] 29.0-29.9, adult
CPT/HCPCS: 36415; 80061

== ENCOUNTER → 2023-07-21 03:17 | Outpatient (CLI) | payer MEDICARE, BC, SELFPAY ==
--- NOTE | 2023-07-21 12:50 | DI.CTLCSR_ITS ---
Exam(s) CT CHEST LUNG CANCER SCREEN EXAM: CT CHEST LUNG CANCER SCREEN CLINICAL HISTORY: Screening for lung cancer,former smoker, z87.891 TECHNIQUE: Imaging Protocol: Axial computed tomography images with coronal and sagittal reformatted images were created and reviewed COMPARISON: CT CT THORAX ABDOMEN CTA from 09/19/[address] CHEST LUNG CANCER SCREEN from 10/23/[address] CHEST LUNG CANCER SCREEN from 03/11/2022 FINDINGS: Tracheobronchial tree: Patent where visualized. Pulmonary parenchyma: Small reticular nodular infiltrates are seen in the posterior lateral aspect of the left upper lobe and the anterolateral aspect of the right lower lobe. No focal consolidating in filtrates are seen. No architectural distortion. Lung Nodules: There is a 3 mm nodule in the right middle lobe (series 3, image 397). There is a 3 mm nodule in the periphery of the left upper lobe (series 3, image 237.). Mediastinum and Leanne: No dominant adenopathy or fluid collection. The esophagus is unremarkable. Thyroid gland: Unremarkable. Lymph nodes: Unremarkable. Pleura: No effusion or pneumothorax. Heart: The heart is not dilated. No coronary artery calcifications are seen. No pericardial effusion . Aorta: Thoracic aorta non-dilated.Mild atherosclerosis. Upper abdomen: Status post cholecystectomy. Stable hepatic cyst. Soft Tissues: Unremarkable. Bones: Within normal limits for the patient's age. IMPRESSION: 1. Small 3 mm pulmonary nodules. 2. Small infiltrates in the left upper and right lower lobes. These are nonspecific. Inflammatory i nfectious process should be considered. Please correlate clinically. Follow-up as clinically approp riate. Lung RADS Cat 2 - Benign Appearance / Behavior: Nodules with a very low likelihood of becoming a clin ically active cancer due to size or lack of growth Lung-RADS 1.0 CATEGORIES: Category 0 - Prior chest CT exam(s) being located for comparison. Category 1 - Annual screening in 12 months. No nodules or definitely benign nodules. Category 2 - Annual screening in 12 months. Benign appearance. Nodules with low likelihood of becomin g active cancer. Category 3 - 6-month follow-up. Probably benign. Short-term follow-up suggested. Nodules with low lik elihood of becoming active cancer. Category 4A - 3-month follow-up and CT/PET if >8 mm in size. Suspicious finding. Findings which requi re additional testing. Category 4B - Findings which require additional testing and tissue sampling. Suspicious finding. Category 4X - Category 3 or 4 nodules with additional features or imaging findings that increases the suspicion of malignancy. Modifier S- Potentially clinically significant finding. (Non lung cancer) Unexpected findings RADIATION DOSE DELIVERED: 79.82mGy.cm Total DLP 79.82mGy.cmTotal DLP DATA REPOSITORY: All CT scans at this facility are submitted to the National Radiology Data Registry (NRDR) Dose Index Registry (DIR) with the [employer] (ACR). RADIATION OPTIMIZATION: All CT scans at this facility use at least one of these dose optimization te chniques: automated exposure control; mA and/or kV adjustment per patient size (includes targeted exa ms where dose is matched to clinical indication); or iterative reconstruction.
== END ==
PROVIDERS: PCP Student in an Organized Health Care Education/Training Program; Visit Provider Student in an Organized Health Care Education/Training Program
DX: Z87.891 Personal history of nicotine dependence (principal); Z12.2 Encounter for screening for malignant neoplasm of respiratory organs; R91.8 Other nonspecific abnormal finding of lung field
CPT/HCPCS: 36415; 71271; 80053; 80061; 82306; 84443

== ENCOUNTER 2023-07-21 03:48 | Outpatient (CLI) | payer MEDICARE, BC, SELFPAY ==
[2023-07-21 13:39] LABS: ALT 20 U/L (14-59); AST 15 U/L (15-37); Albumin 3.8 g/dL (3.4-5.0); Alkaline Phosphatase 65 U/L (46-116); Anion Gap 8.7 mmol/L (3-11); BUN 13 mg/dL (7-18); Bilirubin, Total 0.4 mg/dL (0.2-1.0); CO2 24.3 mmol/L (21.0-32.0); CREATININE 0.7 mg/dL (0.55-1.02); Calcium 8.5 mg/dL (8.5-10.1); Calculated LDL 164 mg/dL (<100); Chloride 106 mmol/L (98-107); Cholesterol 246 mg/dL (<200); Estimated GFR 93.56 (mL/min/1.73m2); Glucose 99 mg/dL (74-106); HDL Cholesterol 72 mg/dL (40-60); Potassium 4.2 mmol/L (3.5-5.1); Sodium 139 mmol/L (136-145); TSH (W/Ref FT4) 0.92 uIU/mL (0.36-3.74); Total Protein 7.1 g/dL (6.4-8.2); Triglyceride 54 mg/dL (<150)
[2023-07-21 14:03] LABS: Vitamin D 25 Total 54.1 ng/mL (30-100)
== END 2023-07-21 03:49 | disposition home or self-care (01) ==
LOC: LBO 03:48
PROVIDERS: PCP Student in an Organized Health Care Education/Training Program; Visit Provider Student in an Organized Health Care Education/Training Program
DX: E46 Unspecified protein-calorie malnutrition (principal); T47.1X5A Adverse effect of other antacids and anti-gastric-secretion drugs, initial encounter; Z91.89 Other specified personal risk factors, not elsewhere classified; Z92.241 Personal history of systemic steroid therapy; Z13.220 Encounter for screening for lipoid disorders
CPT/HCPCS: 36415; 80053; 80061; 82306; 84443

== ENCOUNTER 2024-08-26 00:47 | Outpatient (CLI) | payer MEDICARE, BC, SELFPAY ==
[2024-08-26 10:10] LABS: ESR 6 mm/hr (0-30)
[2024-08-26 11:03] LABS: Calculated LDL 178 mg/dL (<100); Cholesterol 271 mg/dL (<200); HDL Cholesterol 82 mg/dL (>or=50); Triglyceride 58 mg/dL (<150)
[2024-08-26 11:22] LABS: C-Reactive Protein < 0.50 mg/dL (<or=0.5)
== END 2024-08-26 00:48 | disposition home or self-care (01) ==
PROVIDERS: PCP Family Medicine; Visit Provider Family Medicine
DX: G43.909 Migraine, unspecified, not intractable, without status migrainosus (principal); E78.5 Hyperlipidemia, unspecified
CPT/HCPCS: 36415; 80061; 85652; 86140

== ENCOUNTER 2024-12-28 02:45 | Outpatient (CLI) | payer MEDICARE, BC, SELFPAY ==
--- NOTE | 2024-12-28 06:15 | DI.CTLCSR_ITS ---
Exam(s) CT CHEST LUNG CANCER SCREEN EXAM: CT CHEST LUNG CANCER SCREEN CLINICAL HISTORY: Screening for lung cancer,former tobacco use,z87.891 TECHNIQUE: Imaging Protocol: Axial computed tomography images with coronal and sagittal reformatted images were created and reviewed. Low dose screening protocol. COMPARISON: CT CT CHEST LUNG CANCER SCREEN from 07/21/2023 FINDINGS: Tracheobronchial tree: No bronchiectasis or mucus plugging. Mediastinum and Leanne: No dominant adenopathy or fluid collection. Pulmonary parenchyma: No consolidation or dominant measurable mass. No visible emphysematous changes. No significant interstitial changes. Lung Nodules: And the previously noted 3 millimeter nodule right lower lobe is no longer present. Previously mentioned nodule in the periphery of the left upper lobe is also no longer present. There are tree-in-bud infiltrates present at that time in the findings more likely infectious/inflammatory. Pleura: No effusion. No pneumothorax. Heart: The heart is not dilated. No coronary artery calcifications are seen. No pericardial effusion. Aorta: Thoracic aorta non-dilated. Mild atherosclerotic changes. Upper abdomen: Unremarkable. Stable cysts in the liver. Cholecystectomy. Bones: Unremarkable for age. Soft Tissues: Unremarkable. IMPRESSION: No suspicious pulmonary nodules. Lung RADS Cat 1 - Negative: No nodules and definitely benign nodules Lung-RADS 1.0 CATEGORIES: Category 0 - Prior chest CT exam(s) being located for comparison. Category 1 - Annual screening in 12 months. No nodules or definitely benign nodules. Category 2 - Annual screening in 12 months. Benign appearance. Nodules with low likelihood of becoming active cancer. Category 3 - 6-month follow-up. Probably benign. Short-term follow-up suggested. Nodules with low likelihood of becoming active cancer. Category 4A - 3-month follow-up and CT/PET if >8 mm in size. Suspicious finding. Findings which require additional testing. Category 4B - Findings which require additional testing and tissue sampling. Category 4X - Category 3 or 4 nodules with additional features or imaging findings that increases the suspicion of malignancy. Modifier S- Potentially clinically significant findings (non lung cancer) RADIATION DOSE DELIVERED: !Error Total DLP DATA REPOSITORY: All CT scans at this facility are submitted to the National Radiology Data Registry (NRDR) Dose Index Registry (DIR) with the [employer] (ACR). RADIATION OPTIMIZATION: All CT scans at this facility use at least one of these dose optimization techniques: automated exposure control; mA and/or kV adjustment per patient size (includes targeted exams where dose is matched to clinical indication); or iterative reconstruction.
--- NOTE | 2024-12-28 08:15 | DI.MAMMO_ITS ---
Exam(s) MAMMO SCREENING EXAM: MAMMO SCREENING CLINICAL HISTORY: screening,z12.39 TECHNIQUE: Mammograms were interpreted according to the usual protocol including computer analysis with CAD system, tomosynthesis and C-view imaging. COMPARISON: 2015 through 2022 FINDINGS: The breasts are composed of scattered fibroglandular densities, Breast Density category B. No suspicious masses or suspicious microcalcifications are seen. No skin thickening or abnormal axillary lymph nodes are seen. There has been no significant change from prior exams. IMPRESSION: BI-RADS Category 1, Negative mammogram Yearly screening mammography is recommended. Breast Density - Category B - There are scattered areas of fibroglandular density. Breast density Category C or D implies that the patient has dense breast tissue. Dense breast tissue can make it harder to find cancer on a mammogram. Dense breast tissue is also associated with an increased risk of breast cancer. This information about the result of the mammogram report was provided to the patient to raise their awareness. Use this report when you speak with the patient about their risks for breast cancer, which includes their family history. At that time, you may recommend additional screening tests (Ultrasound or MRI) as these tests may add significant information. A negative radiographic report should not delay biopsy if a dominant or clinically suspicious mass is present. Up to ten percent of cancers are not identified on mammography. A negative report may reinforce clinical impression. Adenosis and dense breasts may obscure an underlying neoplasm. False positive reports average 6 to 10%. Patient will receive a letter notifying them of these results.
== END 2024-12-28 03:05 ==
LOC: DI 02:46
PROVIDERS: PCP Family Medicine; Visit Provider Family Medicine
DX: Z12.31 Encounter for screening mammogram for malignant neoplasm of breast (principal); Z12.2 Encounter for screening for malignant neoplasm of respiratory organs; Z87.891 Personal history of nicotine dependence
CPT/HCPCS: 71271; 77063; 77067

== ENCOUNTER 2025-05-10 16:56 | Outpatient (REF) | payer MEDICARE, BC, SELFPAY ==
[2025-05-10 21:29] LABS: C & S Indicated? No; RBC 0-2 HPF (0-2); WBC 0-2 HPF (0-5)
== END 2025-05-10 16:57 | disposition home or self-care (01) ==
LOC: LBN 16:56
PROVIDERS: PCP Nurse Practitioner Family; Visit Provider Nurse Practitioner Family
DX: R31.29 Other microscopic hematuria (principal)
CPT/HCPCS: 81015

== ENCOUNTER 2025-05-24 02:17 | Outpatient (CLI) | payer MEDICARE, BC, SELFPAY ==
[2025-05-24 09:57] LABS: Cholesterol 225 mg/dL (<200); HDL Cholesterol 57 mg/dL (>40)
== END 2025-05-24 02:18 | disposition home or self-care (01) ==
LOC: LBO 02:17
PROVIDERS: PCP Nurse Practitioner Family; Referring Provider Nurse Practitioner Family; Visit Provider Nurse Practitioner Family
DX: E78.5 Hyperlipidemia, unspecified (principal)
CPT/HCPCS: 36415; 80061

== ENCOUNTER → 2025-05-26 01:41 | Outpatient (CLI) | payer MEDICARE, BC, SELFPAY ==
--- NOTE | 2025-05-26 11:23 | DI.DEXA_ITS ---
Exam(s) XR DEXA BONE DENSITY W/WO SAGAR EXAM: XR DEXA BONE DENSITY W/WO SAGAR CLINICAL HISTORY: rule out osteoporosis, POSTMENOPAUSAL, CHRONIC RT SHOULDER PAIN TECHNIQUE: HoloWonderswamp C densitometer analysis of left hip, lumbar spine and left forearm. Lateral survey image of the thoracic and lumbar spine. COMPARISON: DX SAGAR from 04/23/2009 CR XR DEXA BONE DENSITY W/WO SAGAR from 09/20/2021 FINDINGS: Lateral view of the thoracic and lumbar spine shows no evidence of compression fractures. Bone mineral density measurements of the lumbar spine correspond to a total T- score of -0.5, in the normal range. This is not significantly changed from 2021 represents a 2.7 percent decrease from 2008. Bone mineral density measurements of the left hip correspond to a total T-score of -1.3, not significantly changed from 2021. This represents an 11.6 percent decrease from 2008 . The femoral neck T-score is -2.0, in the osteopenic range. Theleft forearm bone mineral density measurements correspond to a T-score of the distal 3rd of 0.0, not significantly changed from 2021. Forearm was not analyzed in 2008. IMPRESSION: Normal bone density of the spine and forearm. Mild osteopenia of the hip.
== END ==
LOC: DI 01:41
PROVIDERS: PCP Nurse Practitioner Family; Visit Provider Nurse Practitioner Family
DX: M25.511 Pain in right shoulder (principal); G89.29 Other chronic pain; Z78.0 Asymptomatic menopausal state; M81.0 Age-related osteoporosis without current pathological fracture
CPT/HCPCS: 77080

== ENCOUNTER → 2025-06-09 01:26 | Outpatient (CLI) | payer MEDICARE, BC, SELFPAY ==
--- NOTE | 2025-06-09 06:45 | DI.US_ITS ---
Exam(s) US RENAL EXAM: US RENAL CLINICAL HISTORY: hematuria, single renal cyst,q61.01,r31.9. TECHNIQUE: Wayne scale imaging and color doppler were used. COMPARISON: US RENAL ULTRASOUND from 09/02/2011 CT RENAL COLIC WO CONTRAST from 09/30/[address] THORAX ABDOMEN CTA from 09/19/2020 FINDINGS: Right kidney: 10.6cm Echogenicity: Normal Hydronephrosis: No Cyst or mass: Small parapelvic cyst near the lower pole. Nephrolithiasis: No Left kidney: 11.0cm. Area of scarring again seen laterally. There is cystic area in this location measuring 2.9 x 1.8 x 1.8 cm. It does not appear significantly changed from the CT of 2020. A CT from 2011 showed a large cyst in this location measuring 10 cm. Echogenicity: Normal Hydronephrosis: No Cyst or mass: Parapelvic cyst near the lower pole. Nephrolithiasis: No Bladder:Normal. Both ureteral jets were visualized. Prevoid vol:219 cc Postvoid vol:11 cc IMPRESSION: Area of scarring in the lateral aspect of the left kidney where there is also a cyst. Small bilateral parapelvic cysts are also present. No evidence of stones, hydronephrosis or suspicious mass. DATA REPOSITORY:
== END ==
LOC: DI 01:26
PROVIDERS: PCP Nurse Practitioner Family; Visit Provider Nurse Practitioner Family
DX: Q61.01 Congenital single renal cyst (principal); R31.9 Hematuria, unspecified
CPT/HCPCS: 76770